=== PATIENT | female | born 1980 | race Two or more races ===

== ENCOUNTER 2017-08-31 08:25 | Emergency (ER) | payer MEDICAID ==
[~2017-08-31] VITALS: Ht 152.4 cm; Wt 60.0 kg
[2017-08-31] MEDS ORDERED: ONDANSETRON HCL 4MG/2ML VIAL IV STA (09:54)
[2017-08-31] MEDS ORDERED: SODIUM CHLORIDE 0.9% 1,000 ML IV ONE (09:54)
[2017-08-31] MEDS ORDERED: MORPHINE SULFATE 2 MG/ML CPJ (NOT FOR IM USE) IV ONE (10:00)
[2017-08-31 10:12] LABS: BASOPHILS % 0.7 % (0.0-2.0); HEMATOCRIT. 39.9 % (36.0-48.0); HEMOGLOBIN. 13.7 g/dL (12.0-16.0); LYMPHOCYTES % 41.1 % (20.0-50.0); MEAN CORPUSCULAR HEMOGLOBIN 28.3 pg (28.0-32.0); MEAN CORPUSCULAR VOLUME 82.3 fL (81.0-99.0); MEAN PLATELET VOLUME 7.8 fl (7.4-10.4); MONOCYTES % 7.6 % (2.0-8.0); NEUTROPHILS % 48.6 % (40.0-76.0); PLATELET 263 x1000/uL (130-400); RED BLOOD CELL COUNT 4.85 mill/uL (4.2-5.4); RED CELL DISTRIBUTION WIDTH 13.2 % (11.6-14.6)
[2017-08-31 10:20] LABS: PROTHROMBIN TIME 10.7 sec (9.4-11.6)
[2017-08-31 10:21] LABS: GLUCOSE URINE NEGATIVE (NEGATIVE); KETONES URINE NEGATIVE (NEGATIVE); LEUKOCYTE ESTERASE URINE 3+ (NEGATIVE); NITRITE URINE NEGATIVE (NEGATIVE); OCCULT BLOOD URINE TRACE (NEGATIVE); PH URINE 7.5 (4.5-8.0); PROTEIN URINE NEGATIVE (NEGATIVE); SPECIFIC GRAVITY URINE 1.011 (1.005-1.030); UROBILINOGEN URINE 0.2 E.U./dL (0.2-1.0)
[2017-08-31 10:22] LABS: CHLORIDE 106 mEq/L (98-107)
[2017-08-31 10:25] LABS: CLARITY URINE HAZY (CLEAR); COLOR URINE YELLOW (YELLOW)
[2017-08-31 10:27] LABS: CARBON DIOXIDE 27 mEq/L (21-32)
[2017-08-31 11:28] LABS: HCG SCREEN NEGATIVE
[2017-08-31] MEDS ORDERED: IOHEXOL-300 100 ML BOTTLE ONE (12:39)
[2017-08-31] MEDS ORDERED: CEFTRIAXONE 250 MG in DEXTROSE 5% WATER 25 ML IV SCH (13:30)
[2017-08-31] MEDS ORDERED: METRONIDAZOLE 500MG TABLET PO ONE (13:30)
[2017-08-31] MEDS ORDERED: ONDANSETRON HCL 4MG/2ML VIAL IV ONE (13:30)
[2017-08-31] MEDS ORDERED: AZITHROMYCIN 500 MG TABLET PO ONE (13:30)
[2017-08-31] MEDS ORDERED: CEFTRIAXONE SODIUM 250 MG/VIAL IM ONE (14:00)
[2017-08-31] MEDS ORDERED: CEFTRIAXONE SODIUM 250 MG/VIAL IM SCH (14:15)
[2017-08-31] MEDS ORDERED: LIDOCAINE HCL/EPINEPHRINE 0.5%-EPI 1:200,000 50 ML VIAL INFIL ONE (14:30)
[2017-08-31 14:39] VITALS: BP 122/80
[2017-08-31] MEDS ORDERED: LIDOCAINE HCL 1% 20ML VIAL (Pyxis) INJ ONE (14:41)
== END 2017-08-31 14:40 | disposition home or self-care (01) ==
LOC: ER 08:25
DX: N39.0 Urinary tract infection, site not specified (principal)
CPT/HCPCS: 36415; 71010; 74177; 80053; 81001; 83690; 84703; 85025; 85610; 93005; 96361; 96372; 96374; 96375; 99285; J0696; J2270; J2405; J3490; Q9967; J7030; J7060

== ENCOUNTER 2018-10-30 09:37 | Emergency (ER) | payer MEDICAID ==
[~2018-10-30] VITALS: Ht 154.9 cm; Wt 64.0 kg
[2018-10-30] MEDS ORDERED: SODIUM CHLORIDE 0.9% 1,000 ML IV ONE (10:55)
[2018-10-30] MEDS ORDERED: KETOROLAC 30MG/ML VIAL IV STA (10:55)
[2018-10-30 14:07] LABS: BASOPHILS % 0.3 % (0.0-2.0); EOSINOPHILS % 0.1 % (0.0-5.0); HEMATOCRIT. 38.6 % (36.0-48.0); HEMOGLOBIN. 13.3 g/dL (12.0-16.0); LYMPHOCYTES % 13.2 % (20.0-50.0); MEAN CORPUSCULAR HEMOGLOBIN 28.7 pg (28.0-32.0); MEAN CORPUSCULAR VOLUME 83.2 fL (81.0-99.0); MONOCYTES % 8.5 % (2.0-8.0); NEUTROPHILS % 77.9 % (40.0-76.0); PLATELET 228 x1000/uL (130-400); RED BLOOD CELL COUNT 4.64 mill/uL (4.2-5.4); RED CELL DISTRIBUTION WIDTH 13.5 % (11.6-14.6)
[2018-10-30 14:11] LABS: CHLORIDE 110 mEq/L (98-107)
[2018-10-30 14:19] LABS: CREATINE KINASE 86 IU/L (26-192)
[2018-10-30 14:21] LABS: HCG SCREEN NEGATIVE
[2018-10-30 14:22] LABS: CREATINE KINASE MB FRACTION < 1.0 ng/mL (0.5-3.6)
[2018-10-30] MEDS ORDERED: ALBUTEROL (0.083%) 2.5MG/3ML NEB HHN STA (15:33)
[2018-10-30] MEDS ORDERED: DEXAMETHASONE 10 MG/ML VIAL IV ONE (15:45)
[2018-10-30 15:48] LABS: CLARITY URINE CLOUDY (CLEAR); COLOR URINE YELLOW (YELLOW); KETONES URINE 3+ (NEGATIVE); LEUKOCYTE ESTERASE URINE 3+ (NEGATIVE); NITRITE URINE NEGATIVE (NEGATIVE); OCCULT BLOOD URINE 1+ (NEGATIVE); PH URINE 6.5 (4.5-8.0); PROTEIN URINE NEGATIVE (NEGATIVE); SPECIFIC GRAVITY URINE 1.018 (1.005-1.030); UROBILINOGEN URINE 0.2 E.U./dL (0.2-1.0)
[2018-10-30] MEDS ORDERED: CEFTRIAXONE 1 G PREMIX 50 ML IV ONE (16:15)
[2018-10-30 19:19] VITALS: BP 133/66
== END 2018-10-30 19:22 | disposition home or self-care (01) ==
LOC: ER 11:03
DX: J06.9 Acute upper respiratory infection, unspecified (principal); N39.0 Urinary tract infection, site not specified
CPT/HCPCS: 36415; 71045; 80053; 81003; 81025; 82550; 82553; 83690; 83880; 84484; 84703; 85025; 87086; 87804; 93005; 94640; 96365; 96375; 99284; J0696; J1100; J1885; J7030; J7611